=== PATIENT | female | born 1940 | race Caucasian/White ===

== ENCOUNTER 2017-08-18 18:10 | Emergency (ER) | payer MEDICARE, MEDICAID ==
[~2017-08-18] VITALS: Ht 170.2 cm; Wt 79.4 kg
--- NOTE | 2017-08-18 18:19 | NUR ---
PT BIB FAMILY TO ER BED 12. PT IS C/O HEADACHE AND HYPERTENSION W/ A B/P OF 240/119. PT WAS GIVEN HCTZ AND B/P UPON ARRIVAL IS 171/103. DENIES FEVER. HEADACHE BEEN BOTHERING HER X 2 DAY. GOWNED AND PLACED ON MONITOR. FAMILY AT BEDSIDE AWAITING MD SWEENEY.
--- NOTE | 2017-08-18 18:49 | NUR ---
PT'S FAMILY IS REFUSING CHEST XRAY.
--- NOTE | 2017-08-18 18:55 | NUR ---
IV LINE STARTED BLOOD DRAWN AND SENT TO LAB.
[2017-08-18] MEDS ORDERED: ENALAPRILAT INJ (1.25 MG/ML) 1.25 MG/ML VIAL IV PRN (19:00)
[2017-08-18] MEDS ORDERED: ENALAPRILAT DIHYD. (2.5MG/ML) 1.25 MG/ML VIAL IV ONE (19:01)
[2017-08-18 19:03] LABS: BASOPHILS # (AUTO) 0.2 /CMM (0.0-0.2); BASOPHILS % (AUTO) 2.8 % (0.0-2.0); EOSINOPHILS # (AUTO) 0.2 /CMM (0.0-0.7); EOSINOPHILS % (AUTO) 3.5 % (0.0-6.0); HEMATOCRIT 38 % (33-45); LYMPHOCYTES # (AUTO) 1.3 /CMM (0.8-4.8); LYMPHOCYTES % (AUTO) 18.9 % (20.0-44.0); MEAN CORPUSCULAR HEMOGLOBIN 32 PG (26.0-33.0); MEAN CORPUSCULAR HGB CONC 34 g/dl (31.0-36.0); MEAN CORPUSCULAR VOLUME 94 fL (82-100); MONOCYTES # (AUTO) 0.8 /CMM (0.1-1.30); MONOCYTES % (AUTO) 11.5 % (2.0-12.0); NEUTROPHILS # (AUTO) 4.6 /CMM (1.8-8.9); NEUTROPHILS % (AUTO) 63.3 % (43.0-81.0); PLATELET COUNT (AUTO) 192 /CMM (150-450); WHITE BLOOD COUNT (AUTO) 7.1 K/uL (4.3-11.0)
[2017-08-18 19:19] LABS: CALCIUM, SERUM 8.6 mg/dL (8.5-10.1); CARBON DIOXIDE 25 mmol/L (21-32); CHLORIDE 100 mmol/L (98-107); GLUCOSE 102 mg/dL (74-106); POTASSIUM 4.3 mmol/L (3.5-5.1); SODIUM SERUM 132 mmol/L (136-145); UREA NITROGEN, BLOOD 21 mg/dL (7-18)
[2017-08-18 19:24] LABS: ALANINE AMINOTRANSFERASE 15 U/L (12-78); ALBUMIN 3.2 g/dL (3.4-5.0); ALKALINE PHOSPHATASE 96 U/L (46-116); ASPARTATE AMINOTRANSFERASE 21 U/L (15-37); BILIRUBIN,DIRECT 0.2 mg/dL (0.0-0.2); BILIRUBIN,TOTAL 0.6 mg/dL (0.2-1.0); TOTAL PROTEIN, SERUM 6.9 g/dL (6.4-8.2)
[2017-08-18 19:27] LABS: TROPONIN I < 0.017 ng/mL (0.00-0.056)
--- NOTE | 2017-08-18 20:07 | NUR ---
Patient discharged to home in stable condition. Written and verbal after care instructions given. Patient verbalizes understanding of instruction.IV removed. Catheter intact and site benign. Pressure and 4x4 applied to site. No bleeding noted.
[2017-08-18 20:16] VITALS: BP 137/74
== END 2017-08-18 20:17 | disposition home or self-care (01) ==
LOC: ER 18:11
DX: I10 Essential (primary) hypertension (principal); J45.909 Unspecified asthma, uncomplicated; Z88.1 Allergy status to other antibiotic agents
CPT/HCPCS: 36415; 80048; 80076; 84484; 85025; 85730; 93005; 96374; 99285; A4606; J3490; Z7610

== ENCOUNTER 2017-09-29 23:24 | Emergency (ER) | payer MEDICARE, MEDICAID | END 2017-09-30 | disposition left against medical advice (07) | LOC: ER 23:25 | DX: Z53.21 Procedure and treatment not carried out due to patient leaving prior to being seen by health care provider (principal) ==

== ENCOUNTER 2018-11-05 08:06 | Emergency (ER) | payer MEDICARE, MEDICAID ==
[~2018-11-05] VITALS: Ht 170.2 cm; Wt 77.1 kg
--- NOTE | 2018-11-05 08:28 | NUR ---
BIB DAUGHTER FOR HI BP 210's & FAST HR. DENIES CP, SOB, DIZZINESS, MAHER, N/V, NUMBNESS @ THIS TIME. TO ER BED 1, HOOKED TO MONITOR, CHANGED TO GOWN, PROVIDED W WARM BLANKET, AWAITING MD SWEENEY.
--- NOTE | 2018-11-05 08:30 | NUR ---
DR ORDOÑEZ AT BEDSIDE
[2018-11-05 08:43] LABS: BASOPHILS # (AUTO) 0.1 /CMM (0.0-0.2); BASOPHILS % (AUTO) 1.6 % (0.0-2.0); EOSINOPHILS % (AUTO) 2.3 % (0.0-6.0); HEMATOCRIT 43 % (33-45); HEMOGLOBIN 14.1 g/dL (11.5-14.8); LYMPHOCYTES % (AUTO) 50.2 % (20.0-44.0); MEAN CORPUSCULAR HGB CONC 33 g/dl (31.0-36.0); MEAN CORPUSCULAR VOLUME 92 fL (82-100); MONOCYTES # (AUTO) 0.6 /CMM (0.1-1.30); MONOCYTES % (AUTO) 14.4 % (2.0-12.0); NEUTROPHILS # (AUTO) 1.2 /CMM (1.8-8.9); NEUTROPHILS % (AUTO) 31.5 % (43.0-81.0); PLATELET COUNT (AUTO) 183 /CMM (150-450); RED BLOOD CELL COUNT(AUTO) 4.66 MIL/uL (4.0-5.2)
[2018-11-05 08:46] LABS: CALCIUM, SERUM 8.5 mg/dL (8.5-10.1); CARBON DIOXIDE 24 mmol/L (21-32); CHLORIDE 101 mmol/L (98-107); CREATININE 0.6 mg/dL (0.6-1.3); GLUCOSE 98 mg/dL (74-106); SODIUM SERUM 135 mmol/L (136-145); UREA NITROGEN, BLOOD 10 mg/dL (7-18)
[2018-11-05 08:51] LABS: ALANINE AMINOTRANSFERASE 23 U/L (12-78); ALBUMIN 3.5 g/dL (3.4-5.0); ALKALINE PHOSPHATASE 152 U/L (46-116); ASPARTATE AMINOTRANSFERASE 34 U/L (15-37); BILIRUBIN,DIRECT 0.1 mg/dL (0.0-0.2); BILIRUBIN,TOTAL 0.8 mg/dL (0.2-1.0); TOTAL PROTEIN, SERUM 7.2 g/dL (6.4-8.2)
--- NOTE | 2018-11-05 10:20 | NUR ---
IV removed. Catheter intact and site benign. Pressure and 4x4 applied to site. No bleeding noted. Patient discharged to home in stable condition. Written and verbal after care instructions given. Patient verbalizes understanding of instruction.
[2018-11-05 11:30] VITALS: BP 152/68
== END 2018-11-05 10:30 | disposition home or self-care (01) ==
LOC: ER 08:12
DX: I10 Essential (primary) hypertension (principal); F41.9 Anxiety disorder, unspecified; J45.909 Unspecified asthma, uncomplicated; Z88.1 Allergy status to other antibiotic agents
CPT/HCPCS: 36415; 80048-TC; 80076-TC; 84484-TC; 85025-TC

== ENCOUNTER 2018-12-20 13:33 | Emergency (ER) | payer MEDICARE, MEDICAID ==
[~2018-12-20] VITALS: Ht 170.2 cm; Wt 76.2 kg
--- NOTE | 2018-12-20 13:52 | NUR ---
GENERALIZED BODY RASH NOTED YESTERDAY, ITCHY. APPEARS ACROSS ABDOMEN, GROIN AREA, AND BICEPS. RASH ON BICEPS APPEAR SLIGHTLY RAISED. PT USED ANT-ITCH CREAM YESTERDAY AND THE ITCHING IS LESS TODAY. DENIES PAIN. PER DAUGHTER, PT STARTED TAKING SEROQUEL 2 WEEKS AGO. DENIES OTHER RECENT CHANGES TO LIFESTYLE/MEDICATIONS. PT IS KOSOVAN-SPEAKING, AOX4, AMB, VSS, RR EVEN AND UNLABORED ON RA. MADE COMFORTABLE AND READY FOR EVAL.
--- NOTE | 2018-12-20 14:20 | NUR ---
DR BRASWELL AT BEDSIDE FOR EVAL.
[2018-12-20] MEDS ORDERED: diphenhydrAMINE HCL ELIX 25 MG/10 ML UDC PO ONE (14:30)
[2018-12-20] MEDS ORDERED: predniSONE 20 MG TABLET PO ONE (14:30)
[2018-12-20] MEDS ORDERED: IV NS 0.9% 500 ML BAG IV ONE (14:30)
[2018-12-20] MEDS ORDERED: predniSONE 20 MG TABLET ONE (14:32)
[2018-12-20] MEDS ORDERED: diphenhydrAMINE HCL 25 MG CAPSULE ONE (14:32)
--- NOTE | 2018-12-20 14:45 | NUR ---
URINE AND BLOOD TAKEN TO STAT LAB
[2018-12-20 14:52] LABS: BASOPHILS % (AUTO) 0.4 % (0.0-2.0); EOSINOPHILS % (AUTO) 0.7 % (0.0-6.0); HEMATOCRIT 37 % (33-45); HEMOGLOBIN 12.2 g/dL (11.5-14.8); LYMPHOCYTES # (AUTO) 1.5 /CMM (0.8-4.8); LYMPHOCYTES % (AUTO) 33.2 % (20.0-44.0); MEAN CORPUSCULAR HGB CONC 33 g/dl (31.0-36.0); MEAN CORPUSCULAR VOLUME 90 fL (82-100); MONOCYTES # (AUTO) 0.5 /CMM (0.1-1.30); MONOCYTES % (AUTO) 9.8 % (2.0-12.0); NEUTROPHILS # (AUTO) 2.6 /CMM (1.8-8.9); NEUTROPHILS % (AUTO) 55.9 % (43.0-81.0); PLATELET COUNT (AUTO) 149 /CMM (150-450); RED BLOOD CELL COUNT(AUTO) 4.13 MIL/uL (4.0-5.2); WHITE BLOOD COUNT (AUTO) 4.6 K/uL (4.3-11.0)
[2018-12-20 14:53] LABS: BILIRUBIN,URINE Negative (NEGATIVE); BLOOD, URINE Negative Ery/uL (NEGATIVE); COLOR,URINE Yellow (YELLOW); KETONES,URINE Negative (NEGATIVE); LEUKOCYTE ESTERASE ,URINE Small (NEGATIVE); NITRITE, URINE Negative (NEGATIVE); PROTEIN,URINE Negative (NEGATIVE); UGLUCOSE Negative (NEGATIVE); UROBILINOGEN,URINE 0.2 EU/dL (0.2)
[2018-12-20 14:57] LABS: APPEARANCE,URINE HAZY (CLEAR)
[2018-12-20 14:58] LABS: BACTERIA,URINE Few /HPF (None Seen); RBC,URINE 0-2 /HPF (0-2); SQUAMOUS EPITHELIAL CELL,UR Few /HPF (None Seen)
[2018-12-20 14:59] LABS: CALCIUM, SERUM 8.2 mg/dL (8.5-10.1); CARBON DIOXIDE 25 mmol/L (21-32); CHLORIDE 101 mmol/L (98-107); CREATININE 0.7 mg/dL (0.6-1.3); GLUCOSE 97 mg/dL (74-106); POTASSIUM 4.5 mmol/L (3.5-5.1); SODIUM SERUM 135 mmol/L (136-145); UREA NITROGEN, BLOOD 11 mg/dL (7-18)
[2018-12-20 15:04] LABS: ALANINE AMINOTRANSFERASE 17 U/L (12-78); ALBUMIN 3.2 g/dL (3.4-5.0); ALKALINE PHOSPHATASE 110 U/L (46-116); ASPARTATE AMINOTRANSFERASE 24 U/L (15-37); BILIRUBIN,DIRECT 0.1 mg/dL (0.0-0.2); BILIRUBIN,TOTAL 0.7 mg/dL (0.2-1.0); LIPASE 198 U/L (73-393); TOTAL PROTEIN, SERUM 6.2 g/dL (6.4-8.2)
--- NOTE | 2018-12-20 15:30 | NUR ---
Patient discharged to home in stable condition. Written and verbal after care instructions given. Patient verbalizes understanding of instruction.
--- NOTE | 2018-12-20 15:31 | NUR ---
IV removed. Catheter intact and site benign. Pressure and 4x4 applied to site. No bleeding noted.
[2018-12-20 15:48] VITALS: BP 100/55
== END 2018-12-20 15:30 | disposition home or self-care (01) ==
LOC: ER 13:35
DX: L50.9 Urticaria, unspecified (principal); T43.595A Adverse effect of other antipsychotics and neuroleptics, initial encounter; N39.0 Urinary tract infection, site not specified; I10 Essential (primary) hypertension; J45.909 Unspecified asthma, uncomplicated; Z88.1 Allergy status to other antibiotic agents; Y92.89 Other specified places as the place of occurrence of the external cause
CPT/HCPCS: 36415; 80048; 80076; 81001; 83690; 85025; 87086; 99283; J7040; J7512; Q0163; 81000-TC; J7030

== ENCOUNTER 2021-08-08 08:24 | Emergency (ER) | payer MEDICARE, MEDICAID ==
[~2021-08-08] VITALS: Ht 162.6 cm; Wt 65.3 kg
--- NOTE | 2021-08-08 08:50 | NUR ---
DR ROBERTS AT BEDSIDE FOR EVAL.
[2021-08-08] MEDS ORDERED: IV NS 0.9% 500 ML BAG IV ONE (09:00)
--- NOTE | 2021-08-08 09:06 | NUR ---
IV LINE STARTED BLOOD DRAWN AND SENT TO LAB.
--- NOTE | 2021-08-08 09:07 | NUR ---
RADIOLOGY AT BEDSIDE FOR CHEST XRAY.
[2021-08-08] MEDS ORDERED: LOSA25TA27 PO (09:08)
[2021-08-08] MEDS ORDERED: ESCI10TA PO (09:08)
[2021-08-08] MEDS ORDERED: CARB1TAB21 PO (09:08)
[2021-08-08] MEDS ORDERED: HYDR-4077 PO (09:08)
[2021-08-08] MEDS ORDERED: PROP10TA68 PO (09:08)
[2021-08-08] MEDS ORDERED: MYRBETRIQ PO (09:08)
[2021-08-08] MEDS ORDERED: LORA-258 PO (09:08)
[2021-08-08] MEDS ORDERED: LOSA50TA39 PO (09:08)
[2021-08-08] MEDS ORDERED: MEMA10TA56 PO (09:08)
[2021-08-08] MEDS ORDERED: ASPI-1420 PO (09:08)
[2021-08-08] MEDS ORDERED: PRAV20TA4 PO (09:08)
[2021-08-08] MEDS ORDERED: FOLI0.4T6 PO (09:08)
[2021-08-08] MEDS ORDERED: DONE10TA44 PO (09:08)
[2021-08-08] MEDS ORDERED: BENZ0.5T43 PO (09:08)
[2021-08-08] MEDS ORDERED: FLUT16SP16 BNOSTRILS (09:09)
[2021-08-08] MEDS ORDERED: ALBU18HF2 IH (09:09)
[2021-08-08 09:30] LABS: BASOPHILS % (AUTO) 0.3 % (0.0-2.0); EOSINOPHILS % (AUTO) 0.2 % (0.0-6.0); HEMATOCRIT 45 % (33-45); HEMOGLOBIN 14.9 g/dL (11.5-14.8); LYMPHOCYTES # (AUTO) 1.9 K/uL (0.8-4.8); LYMPHOCYTES % (AUTO) 39.5 % (20.0-44.0); MEAN CORPUSCULAR HGB CONC 33 g/dl (31.0-36.0); MEAN CORPUSCULAR VOLUME 93 fL (82-100); MONOCYTES # (AUTO) 0.9 K/uL (0.1-1.30); MONOCYTES % (AUTO) 17.9 % (2.0-12.0); NEUTROPHILS % (AUTO) 42.1 % (43.0-81.0); PLATELET COUNT (AUTO) 110 K/uL (150-450); RED BLOOD CELL COUNT(AUTO) 4.84 MIL/uL (4.0-5.2); WHITE BLOOD COUNT (AUTO) 4.9 K/uL (4.3-11.0)
[2021-08-08 10:05] LABS: ALANINE AMINOTRANSFERASE 39 U/L (12-78); ALBUMIN 3.4 g/dL (3.4-5.0); ALKALINE PHOSPHATASE 133 U/L (46-116); ASPARTATE AMINOTRANSFERASE 52 U/L (15-37); BILIRUBIN,DIRECT 0.2 mg/dL (0.0-0.2); CARBON DIOXIDE 28 mmol/L (21-32); CHLORIDE 95 mmol/L (98-107); CREATININE 0.7 mg/dL (0.6-1.3); GLUCOSE 109 mg/dL (74-106); POTASSIUM 3.9 mmol/L (3.5-5.1); SODIUM SERUM 132 mmol/L (136-145); TOTAL PROTEIN, SERUM 7.8 g/dL (6.4-8.2); UREA NITROGEN, BLOOD 9 mg/dL (7-18)
--- NOTE | 2021-08-08 10:22 | NUR ---
FAMILY LEFT CONTACT # [phone]
[2021-08-08 11:25] LABS: BILIRUBIN,URINE NEGATIVE (NEGATIVE); COLOR,URINE YELLOW (YELLOW); LEUKOCYTE ESTERASE ,URINE NEGATIVE (NEGATIVE); NITRITE, URINE NEGATIVE (NEGATIVE); PROTEIN,URINE NEGATIVE (NEGATIVE); UGLUCOSE NEGATIVE (NEGATIVE); UROBILINOGEN,URINE 0.2 EU/dL (0.2)
[2021-08-08] MEDS ORDERED: hydrALAZINE HCL IV 20 MG VIAL IV ONE (12:00)
[2021-08-08] MEDS ORDERED: hydrALAZINE HCL IV 20 MG VIAL ONE (12:13)
--- NOTE | 2021-08-08 12:59 | NUR ---
Patient discharged to home in stable condition. Written and verbal after care instructions given. Patient verbalizes understanding of instruction.Patient discharged to home in stable condition. Written and verbal after care instructions given. Patient verbalizes understanding of instruction.
[2021-08-08 13:04] VITALS: BP 134/68
[2021-08-08 15:11] LABS: BACTERIA,URINE None seen /HPF (None Seen); RBC,URINE 0-2 /HPF (0-2); SQUAMOUS EPITHELIAL CELL,UR None Seen /HPF (None Seen); WBC,URINE 0-2 /HPF (0-3)
[2021-08-08 15:38] LABS: BAND % (MANUAL) 2 % (0.0-5.0); LYMPHOCYTES % (MANUAL) 26 % (16-48); METAMYELOCYTES % 6 % (0-0); MONOCYTES % (MANUAL) 16 % (0-11.0); MYELOCYTES % 3 % (0-0); NEUTROPHILS % (MANUAL) 43 (42-76)
[2021-08-08 15:39] LABS: REACTIVE LYMPHOCYTES 4 % (0-0)
== END 2021-08-08 13:04 | disposition home or self-care (01) ==
LOC: ER 08:27
DX: R53.1 Weakness (principal); R55 Syncope and collapse; I10 Essential (primary) hypertension; J45.909 Unspecified asthma, uncomplicated; Z88.1 Allergy status to other antibiotic agents; Z88.8 Allergy status to other drugs, medicaments and biological substances; Z79.899 Other long term (current) drug therapy; Z79.82 Long term (current) use of aspirin; W18.39XA Other fall on same level, initial encounter; Y93.89 Activity, other specified; Y92.098 Other place in other non-institutional residence as the place of occurrence of the external cause; Y99.8 Other external cause status
CPT/HCPCS: 36415; 70450; 71045; 80048; 80076; 81001; 82550; 82553; 83880; 84484; 85007; 85025; 87086; 93005; 96374; 99285; J0360; J7040 ×2

== ENCOUNTER 2022-04-01 14:14 | Emergency (ER) | payer MEDICARE, OTHER ==
[~2022-04-01] VITALS: Ht 175.3 cm; Wt 70.3 kg
[~2022-04-01 14:14] MED LIST: ALBU18HF2 IH; ASPI-1420 PO; BENZ0.5T43 PO; CARB1TAB21 PO; DONE10TA44 PO; ESCI10TA PO; FLUT16SP16 BNOSTRILS; FOLI0.4T6 PO; HYDR-4077 PO; LORA-258 PO; LOSA25TA27 PO; LOSA50TA39 PO; MEMA10TA56 PO; MYRBETRIQ PO; PRAV20TA4 PO; PROP10TA68 PO
[2022-04-01 14:31] VITALS: BP 158/77
[2022-04-01] MEDS ORDERED: HYDROCODONE BIT/HOMATROPINE 5 ML UDC ONE (15:29)
[2022-04-01] MEDS ORDERED: HYDROCODONE BIT/HOMATROPINE 5 ML UDC PO ONE (15:30)
[2022-04-01] MEDS ORDERED: HYDR473S4 PO (16:16)
== END 2022-04-01 16:26 | disposition home or self-care (01) ==
LOC: ER 14:18
DX: J20.9 Acute bronchitis, unspecified (principal); Z20.822 Contact with and (suspected) exposure to COVID-19; R91.8 Other nonspecific abnormal finding of lung field; J45.909 Unspecified asthma, uncomplicated; I10 Essential (primary) hypertension; Z88.1 Allergy status to other antibiotic agents; Z79.899 Other long term (current) drug therapy
CPT/HCPCS: 71045-TC; C9803

== ENCOUNTER 2022-11-13 15:37 | Inpatient (IN) | payer MEDICARE, OTHER ==
[~2022-11-13] VITALS: Ht 170.2 cm; Wt 74.4 kg
[~2022-11-13 15:37] MED LIST changes: +FLUT16SP16; -FLUT16SP16 BNOSTRILS; +HYDR473S4 PO
[2022-11-13] MEDS ORDERED: ACETAMINOPHEN 650 MG/SUPP.RECT RC ONE ×2 (16:00)
[2022-11-13] MEDS ORDERED: IV NS 0.9% 1,000 ML BAG IV ONE (16:00)
[2022-11-13 16:08] LABS: BASOPHILS % (AUTO) 0.5 % (0.0-2.0); EOSINOPHILS % (AUTO) 0.4 % (0.0-6.0); HEMATOCRIT 42 % (33-45); HEMOGLOBIN 14.3 g/dL (11.5-14.8); LYMPHOCYTES # (AUTO) 1.2 K/uL (0.8-4.8); LYMPHOCYTES % (AUTO) 15.7 % (20.0-44.0); MEAN CORPUSCULAR HGB CONC 34 g/dl (31.0-36.0); MEAN CORPUSCULAR VOLUME 95 fL (82-100); MONOCYTES # (AUTO) 0.9 K/uL (0.1-1.30); MONOCYTES % (AUTO) 12.4 % (2.0-12.0); NEUTROPHILS # (AUTO) 5.4 K/uL (1.8-8.9); PLATELET COUNT (AUTO) 177 K/uL (150-450); RED BLOOD CELL COUNT(AUTO) 4.48 MIL/uL (4.0-5.2); WHITE BLOOD COUNT (AUTO) 7.6 K/uL (4.3-11.0)
[2022-11-13 16:33] LABS: CALCIUM, SERUM 9.1 mg/dL (8.5-10.1); CARBON DIOXIDE 23 mmol/L (21-32); CHLORIDE 96 mmol/L (98-107); CREATININE 0.5 mg/dL (0.6-1.3); GLUCOSE 112 mg/dL (74-106); POTASSIUM 4.4 mmol/L (3.5-5.1); SERUM AMMONIA 22 umol/L (11-32); SODIUM SERUM 130 mmol/L (136-145); UREA NITROGEN, BLOOD 13 mg/dL (7-18)
[2022-11-13 16:40] LABS: ALANINE AMINOTRANSFERASE 26 U/L (12-78); ALBUMIN 3.5 g/dL (3.4-5.0); ALKALINE PHOSPHATASE 147 U/L (46-116); ASPARTATE AMINOTRANSFERASE 38 U/L (15-37); BILIRUBIN,DIRECT 0.1 mg/dL (0.0-0.2); BILIRUBIN,TOTAL 1.1 mg/dL (0.2-1.0); TOTAL PROTEIN, SERUM 7.8 g/dL (6.4-8.2)
[2022-11-13 16:43] LABS: ALCOHOL, BLOOD < 3 mg/dL (0-0)
--- NOTE | 2022-11-13 16:44 | NUR ---
PT IN BED 5. PT A/O X1 SLOVENIAN SPEAKING, BREATHING IS EVEN AND UNLABORED LUNG SOUNDS ARE CLEAR BILATERALLY ON ROOM AIR, DAUGHTER IS AT BEDSIDE. C/O: POTENTAL FOR SEPSIS ON ARRIVAL PT HAD A FEVER PT GIVEN TYLENOL RECTALLY, HX OF UTI IN PAST WEEK JUST FINISHED ABX THERAPY URINE STILL POSTIVE FOR BACTERIA. HYPERTENSIVE WHEN ATTCHED TO BEDISDE MONITOR. O2 AND HR WNL. DIAS CATHETER STARTED DRAINING YELLOW URINE. URINE COLLECTED AND SENT TO LAB. PT IN SEMI FOWLERS, SIDE RAILS ARE UP BED LOCKED IN LOWEST POSTION.
--- NOTE | 2022-11-13 16:52 | NUR ---
20G RFA BLOOD AND CULTURES DRAWN AND SENT TO LAB
--- NOTE | 2022-11-13 16:53 | NUR ---
BG 108
--- NOTE | 2022-11-13 16:54 | NUR ---
URINE COLLECTED AND SET TO LAB.
--- NOTE | 2022-11-13 16:54 | NUR ---
DIAS CATHETER INSERTED 16F DRAINING YELLOW URINE
[2022-11-13 17:00] LABS: BILIRUBIN,URINE NEGATIVE (NEGATIVE); COLOR,URINE YELLOW (YELLOW); LEUKOCYTE ESTERASE ,URINE TRACE (NEGATIVE); NITRITE, URINE NEGATIVE (NEGATIVE); PROTEIN,URINE 1+ mg/dl (NEGATIVE); UGLUCOSE NEGATIVE (NEGATIVE); UROBILINOGEN,URINE 0.2 EU/dL (0.2)
[2022-11-13] MEDS ORDERED: TRIA0.2585 PO (17:05)
[2022-11-13] MEDS ORDERED: DOCU100C58 PO (17:05)
[2022-11-13] MEDS ORDERED: ESOM40CA52 PO (17:05)
[2022-11-13] MEDS ORDERED: CLOT15CR27 TD (17:05)
[2022-11-13] MEDS ORDERED: DONE23TA3 PO (17:05)
[2022-11-13] MEDS ORDERED: MELO-107 PO (17:05)
[2022-11-13] MEDS ORDERED: OLOP5DRO15 EACHEYE (17:05)
[2022-11-13] MEDS ORDERED: METH2.5T14 MT (17:05)
[2022-11-13] MEDS ORDERED: AMLO-212 PO (17:05)
[2022-11-13] MEDS ORDERED: LORA-953 PO (17:05)
[2022-11-13] MEDS ORDERED: ATEN25TA PO (17:05)
[2022-11-13] MEDS ORDERED: CARB1TAB31 PO (17:05)
[2022-11-13] MEDS ORDERED: DICL1PAT7 TD (17:05)
[2022-11-13] MEDS ORDERED: AZEL137S7 (17:05)
[2022-11-13 17:22] LABS: THYROID STIMULATING HORMONE 1.051 uIU/mL (0.358-3.74)
[2022-11-13] MEDS ORDERED: CEFTRIAXONE 1GM BAG (ER ONLY) 50 ML IV ONE (17:45)
[2022-11-13 17:50] LABS: BACTERIA,URINE 3+ /HPF (None Seen); RBC,URINE 0-2 /HPF (0-2); SQUAMOUS EPITHELIAL CELL,UR None Seen /HPF (None Seen)
[2022-11-13 17:51] LABS: MUCUS,URINE Moderate /LPF (None Seen)
[2022-11-13] MEDS ORDERED: CEFTRIAXONE 1GM BAG (ER ONLY) 1 GM/50 ML PIGGYBACK IV ONE (18:00)
--- NOTE | 2022-11-13 18:04 | NUR ---
[facility] CALLED, STUDENT SERVICES ADVISOR PAGED.
--- NOTE | 2022-11-13 19:11 | NUR ---
[facility] CALLED, COLLEGE AND CAREER COUNSELOR PAGED.
--- NOTE | 2022-11-13 20:26 | NUR ---
REPORT GIVEN TO [facility] FOR INPATIENT SERVICES.
[2022-11-13 20:45] VITALS: BP 127/59
--- NOTE | 2022-11-13 21:00 | NUR ---
pt transported with emt rn and daughter as freelance interpreter/translator at bedside. pt was stable throught acls transport. inpateient nurse at bedside to receive patient.
[2022-11-13] MEDS ORDERED: MAGNESIUM HYDROXIDE 30 ML UDC PO PRN (21:30)
[2022-11-13] MEDS ORDERED: ONDANSETRON HCL/PF 4 MG/2 ML VIAL IVP PRN (21:30)
[2022-11-13] MEDS ORDERED: Z GUARD REMEDY 4 OZ OINT TP PRN (21:30)
[2022-11-13] MEDS: ENOXAPARIN SODIUM 40 MG/0.4 ML DISP.SYRIN SQ SCH (21:49)
[2022-11-13] MEDS: IV NS 0.9% 1,000 ML IV PRN (21:59)
[2022-11-13] MEDS ORDERED: LORATADINE 10 MG TABLET PO PRN (23:30)
[2022-11-13] MEDS ORDERED: DOCUSATE SODIUM 100 MG CAPSULE PO PRN (23:30)
[2022-11-13] MEDS ORDERED: LORAZEPAM 0.5 MG TABLET PO PRN (23:30)
--- NOTE | 2022-11-13 23:50 | NUR ---
ADMISSION NOTE PATIENT BROUGHT UP AT AROUND 2044, ACCOMPANIED BY 1 ER PERSONNEL AND ONE OF HER DAUGHTER VIA GURNEY. PATIENT IS A/OX1 PER DAUGHTER AND NEEDS FREQUENT RE-ORIENTATION. NO S/S OF APPARENT DISTRESS ON ROOM AIR. DENIES ANY PAIN. PATIENT HAS DIAS PRESENT UPON ADMISSION DRAINING CLEAR, YELLOW URINE VIA GRAVITY. HAS 2 IV ACCESS ONE ON THE R.FA#18G AND LEFT WRIST #20G BOTH INTACT AND PATENT. NEW ID BAND ON PATIENT. BELONGINGS CHECKED AND SIGNED BY DAUGHTER AT BED SIDE. PER DAUGHTER MOM WOULD LIKE TO BE FULL CODE. AND IS UP-TO-DATE WITH ALL HER IMMUNIZATIONS INCLUDING COVID. DENIES SMOKING NOR ALCOHOL DRINKING. PATIENT ORIENTED IN THE UNIT AND THE USE OF CALL LIGHT. SAFETY IN PLACE. DAUGHTER CITLALI ASKED TO STAY OVER NIGHT FOR TONIGHT TO ENSURE HER MOM'S SAFETY. CHARGE NURSE ZION AGREEABLE. ALL NEEDS ATTENDED FOR NOW. WILL CONTINUE WITH PLAN OF CARE FOR PATIENT AND FOLLOW THROUGH DOCTOR'S ORDERS.
[2022-11-13] MEDS: AMLODIPINE BESYLATE 5 MG TABLET PO SCH (23:59)
[2022-11-14] MEDS: ACETAMINOPHEN 325 MG TABLET PO PRN ×2 (05:31→19:15)
--- NOTE | 2022-11-14 05:53 | NUR ---
noc rn note Temperature 101.8, given Tylenol 650mg as ordered PRN. Daughter present at bed side said mom would refused ice packs. patient education done about cooling measures, daughter acknowledged. will re-assess.
[2022-11-14 05:54] LABS: BASOPHILS % (AUTO) 0.2 % (0.0-2.0); EOSINOPHILS % (AUTO) 0.3 % (0.0-6.0); HEMATOCRIT 36 % (33-45); HEMOGLOBIN 12.3 g/dL (11.5-14.8); LYMPHOCYTES # (AUTO) 1.2 K/uL (0.8-4.8); LYMPHOCYTES % (AUTO) 14.4 % (20.0-44.0); MEAN CORPUSCULAR HGB CONC 34 g/dl (31.0-36.0); MEAN CORPUSCULAR VOLUME 95 fL (82-100); MONOCYTES # (AUTO) 1.2 K/uL (0.1-1.30); MONOCYTES % (AUTO) 13.8 % (2.0-12.0); NEUTROPHILS % (AUTO) 71.3 % (43.0-81.0); PLATELET COUNT (AUTO) 134 K/uL (150-450); RED BLOOD CELL COUNT(AUTO) 3.82 MIL/uL (4.0-5.2); WHITE BLOOD COUNT (AUTO) 8.4 K/uL (4.3-11.0)
[2022-11-14 06:13] LABS: CALCIUM, SERUM 8.4 mg/dL (8.5-10.1); CARBON DIOXIDE 22 mmol/L (21-32); CHLORIDE 100 mmol/L (98-107); CREATININE 0.6 mg/dL (0.6-1.3); GLUCOSE 117 mg/dL (74-106); MAGNESIUM 1.8 mg/dL (1.8-2.4); PHOSPHORUS 3.2 mg/dL (2.5-4.9); POTASSIUM 3.8 mmol/L (3.5-5.1); SODIUM SERUM 132 mmol/L (136-145); UREA NITROGEN, BLOOD 19 mg/dL (7-18)
[2022-11-14 06:26] LABS: THYROID STIMULATING HORMONE 0.826 uIU/mL (0.358-3.74)
--- NOTE | 2022-11-14 06:39 | NUR ---
noc rn note- re-assessment Temp 98.3 after tylenol.
--- NOTE | 2022-11-14 07:25 | NUR ---
noc rn closing note Patient in bed with eyes closed, easy to arouse. no s/s of apparent distress on room air. denies pain. IV NS running @75mls/hr. all needs attended. scheduled medications administered. Del Angel draining clear, yellow urine with 850mls of output. call light within reach. endorsed to austin Irene for continuity of patient care.
--- NOTE | 2022-11-14 07:30 | NUR ---
RN OPENING NOTE PATIENT AWAKE IN BED, RESTING, A/O X 1, DAUGHTER AT BEDSIDE. NO S/S OF PAIN NOTED AT THIS TIME. ON ROOM AIR, BREATHING EVEN AND UNLABORED, NO DISTRESS OR SHORTNESS OF BREATH NOTED. PATIENT IS COMPLIANT WITH MEDICATIONS. IV ACCESS, L WRIST #20G INTACT, PATENT AND FLUSHING WELL. FALL AND SAFETY MEASURES IN PLACE BED ALARM ON, BED IN LOW AND LOCK POSITION, CALL LIGHT AND TABLE WITHIN EASY REACH, SIDE RAILS UP X2. WILL CONTINUE TO MONITOR.
[2022-11-14 08:00] VITALS: BP 124/58
[2022-11-14] MEDS: PANTOPRAZOLE 40 MG TABLET.DR PO SCH (08:08)
[2022-11-14] MEDS: MEMANTINE HCL 5 MG TABLET PO SCH ×2 (08:31→16:30)
[2022-11-14] MEDS: CEFTRIAXONE 1 G in IV D5W 50 ML IV SCH (08:31)
[2022-11-14] MEDS: ASPIRIN EC 81 MG TABLET.DR PO SCH (08:32)
[2022-11-14] MEDS: CARBIDOPA/LEVODOPA 10/100 MG 1 UDTAB PO SCH ×5 (08:32→21:44)
[2022-11-14] MEDS: FOLIC ACID 1 MG TABLET PO SCH (08:32)
[2022-11-14] MEDS: ESCITALOPRAM OXALATE (10 MG) 10 MG TABLET PO SCH (08:33)
[2022-11-14] MEDS: ATENOLOL 25 MG TABLET PO SCH (08:33)
--- NOTE | 2022-11-14 08:34 | NUR ---
RN NOTE FAMILY (DAUGHTER AT BEDSIDE) REQUESTED NOT TO GIVE PATIENT HER MORNING ATENOLOL AT THE MOMENT, BP: 124/58 HR:55. WILL CONTINUE TO MONITOR.
[2022-11-14] MEDS: AZELASTINE NASAL SPRAY 30 ML BOTTLE NS SCH ×2 (09:48→16:29)
[2022-11-14] MEDS: OLOPATADINE HCL 0.1% OPHTH BOTTLE EACHEYE SCH ×2 (09:48→16:29)
[2022-11-14 13:13] VITALS: BP 146/70
[2022-11-14] MEDS: IV NS 0.9% 1,000 ML IV PRN (15:32)
[2022-11-14 16:00] VITALS: BP_SYST 152; BP_SYST 165; BP_DIAS 67; BP_DIAS 98
[2022-11-14 16:30] VITALS: BP 165/67
[2022-11-14 17:37] VITALS: BP 155/103
--- NOTE | 2022-11-14 18:41 | NUR ---
RN CLOSING NOTE PATIENT AWAKE IN BED, RESTING, A/O X 1, FAMILY AT BEDSIDE. NO S/S OF PAIN NOTED AT THIS TIME. ON ROOM AIR, BREATHING EVEN AND UNLABORED, NO DISTRESS OR SHORTNESS OF BREATH NOTED. PATIENT IS COMPLIANT WITH MEDICATIONS. SCHEDULED MEDICATIONS ADMINISTERED. PATIENT WAS TURNED AND REPOSITIONED PER PROTOCOL. IV ACCESS, L WRIST #20G INTACT, PATENT AND FLUSHING WELL, RUNNING NS @ 75ML/HR. FALL AND SAFETY MEASURES IN PLACE BED ALARM ON, BED IN LOW AND LOCK POSITION, CALL LIGHT AND TABLE WITHIN EASY REACH, SIDE RAILS UP X2. ALL NEEDS ATTENDED AND ANTICIPATED. WILL ENDORSE TO HEALTH AND SAFETY MANAGER NURSE. Addendum: 11/14/22 at 1846 by Maria Victoria Pereira RN PATIENT WITH DIAS CATHETER IN PLACED AND DRAINING WELL, OUTPUT 1100ML, YELLOW URINE.
--- NOTE | 2022-11-14 19:30 | NUR ---
MS ASGE INITIAL NOTES RECEIVED REPORT FROM AM NURSE AND SEEN PT IN BED AWAKE AND ALERT , DAUGHTER CONCERNED ABOUT THE BLOOD PRESSURES OF THE PATIENT EARLIER THAT IS 178/68 . AND HAVE TEMP 100.8 TYLENOL GIVEN BY AM NURSE . KIMBERLEE CEBALLOS RE-CHECKED THE VITAL SIGNS AND CAME OUT BP 162/62 , PULSE 75, RESP 20 ,TEMP 98.5 AND O2 SAT 95 % IN ROOM AIR. I TALKED TO THE DAUGHTER THAT I WILL CHECK ABOUT HER MEDS AND I WILL COME BACK .
[2022-11-14] MEDS: AMLODIPINE BESYLATE 5 MG TABLET PO SCH (19:55)
--- NOTE | 2022-11-14 19:55 | NUR ---
MS SAGE NOTES NORVASC 5MG PO GIVEN ORDERED , CHARGE NURSE AWARE. THEN I TOLD TO THE DAUGHTER THAT I WILL NOTIFY THE MD IF SHE NEEDS PRN MEDICATION FOR HER BLOOD PRESSURE. PT DAUGHTER SAID "THANK YOU ". NO SIGNS OF ANY DISCOMFORT OR ANY ACUTE DISTRESS NOTED. PT STILL HAVE IVF OF NS TA 75ML/HR INFUSING ON HER LEFT WRIST. WILL CONTINUE MONITORING. BED IN LOW AND LOCK IN POSITION WITH SIDE RAILS X2 UP . FAMILY STILL AT THE BEDSIDE.
[2022-11-14 20:00] VITALS: BP 162/62
[2022-11-14] MEDS: ENOXAPARIN SODIUM 40 MG/0.4 ML DISP.SYRIN SQ SCH (21:46)
--- NOTE | 2022-11-14 22:55 | NUR ---
MS SAGE NOTES DAUGHTER CAME BACK JUST TO ENCOURAGE PATIENT TO TAKE HER MEDICATION , WE TRIED EARLIER WITH THE HELPED OF HER NIECE BUT PATIENT STILL REFUSING. EDUCATE THE PATIENT ALSO WHAT THE PURPOSE OF IT. NOTIFY MD SPORTS INFORMATION DIRECTOR .
[2022-11-15] MEDS: IV NS 0.9% 1,000 ML IV PRN (06:11)
[2022-11-15 07:00] VITALS: BP 144/69
--- NOTE | 2022-11-15 07:00 | NUR ---
MS CAR ATTENDANT CLOSING NOTES PT RESTING AT THIS TIME NO SIGNS OF ANY DISCOMFORT OR ANY ACUTE DISTRESS NOTED. IVF STILL INFUSING . MORNING CARE DONE WITH THE HELPED OF TEST AND TURN UP TECHNICIAN. KEPT HER WARM AND COMFORTABLE AT ALL TIMES. NIECE STILL AT THE BEDSIDE FOR PT SAFETY. WILL ENDORSE TO AM NURSE FOR CONTINUITY OF CARE.
[2022-11-15 07:01] LABS: CARBON DIOXIDE 25 mmol/L (21-32); CHLORIDE 101 mmol/L (98-107); CREATININE 0.5 mg/dL (0.6-1.3); GLUCOSE 104 mg/dL (74-106); POTASSIUM 3.3 mmol/L (3.5-5.1); SODIUM SERUM 133 mmol/L (136-145); UREA NITROGEN, BLOOD 8 mg/dL (7-18)
--- NOTE | 2022-11-15 07:30 | NUR ---
RN OPENING NOTE PATIENT AWAKE IN BED, RESTING, A/O X 1-2, NIECE AT BEDSIDE. NO S/S OF PAIN NOTED AT THIS TIME. ON ROOM AIR, BREATHING EVEN AND UNLABORED, NO DISTRESS OR SHORTNESS OF BREATH NOTED. PATIENT IS COMPLIANT WITH MEDICATIONS. IV ACCESS, L WRIST #20G INTACT, PATENT AND FLUSHING WELL. FALL AND SAFETY MEASURES IN PLACE BED ALARM ON, BED IN LOW AND LOCK POSITION, CALL LIGHT AND TABLE WITHIN EASY REACH, SIDE RAILS UP X2. WILL CONTINUE TO MONITOR.
[2022-11-15] MEDS: CEFTRIAXONE 1 G in IV D5W 50 ML IV SCH (08:38)
[2022-11-15] MEDS: OLOPATADINE HCL 0.1% OPHTH BOTTLE EACHEYE SCH ×2 (08:38→16:26)
[2022-11-15] MEDS: AZELASTINE NASAL SPRAY 30 ML BOTTLE NS SCH ×2 (08:38→16:27)
[2022-11-15] MEDS: ASPIRIN EC 81 MG TABLET.DR PO SCH (08:39)
[2022-11-15] MEDS: DONEPEZIL 5 MG TABLET PO SCH (08:39)
[2022-11-15] MEDS: ATENOLOL 25 MG TABLET PO SCH (08:39)
[2022-11-15] MEDS: MEMANTINE HCL 5 MG TABLET PO SCH ×2 (08:40→16:27)
[2022-11-15] MEDS: ESCITALOPRAM OXALATE (10 MG) 10 MG TABLET PO SCH (08:40)
[2022-11-15] MEDS: CARBIDOPA/LEVODOPA 10/100 MG 1 UDTAB PO SCH ×4 (08:40→20:19)
[2022-11-15] MEDS: FOLIC ACID 1 MG TABLET PO SCH (08:40)
[2022-11-15] MEDS: PANTOPRAZOLE 40 MG TABLET.DR PO SCH (08:41)
[2022-11-15] MEDS ORDERED: POTASSIUM CHLORIDE 20 MEQ POWDER PACKET PO ONE (09:00)
[2022-11-15] MEDS ORDERED: hydrALAZINE HCL IV 20 MG VIAL IV PRN (11:00)
--- NOTE | 2022-11-15 11:05 | NUR ---
RN NOTE WHILE ON THE UNIT DOCTOR JESS MCMULLEN ORDER HYDRALAZINE 10MG IV Q8HR PRN FOR SBP >160, ORDER NOTED AND CARRIED.
--- NOTE | 2022-11-15 11:10 | NUR ---
RN NOTE PER DOCTOR JESS MCMULLEN, IF PATIENT IS EATING AND DRINKING ENOUGH FLUIDS, NO NEED FOR NS @ 75 ML/HR. WILL CONTINUE TO MONITOR AND ENDORSE TO NEXT SHIFT NURSE.
[2022-11-15 12:46] VITALS: BP 128/60
[2022-11-15 16:00] VITALS: BP 141/61
--- NOTE | 2022-11-15 17:04 | NUR ---
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 BACTROBAN OINTMENT WAS ORDERED, APPLY TO BOTH NOSTRILS. CHARGE NURSE AWARE.
--- NOTE | 2022-11-15 18:49 | NUR ---
RN CLOSING NOTE PATIENT AWAKE IN BED, RESTING, A/O X 1, FAMILY AT BEDSIDE. NO S/S OF PAIN NOTED AT THIS TIME. ON ROOM AIR, BREATHING EVEN AND UNLABORED, NO DISTRESS OR SHORTNESS OF BREATH NOTED. PATIENT IS COMPLIANT WITH MEDICATIONS. SCHEDULED MEDICATIONS ADMINISTERED. PATIENT WAS TURNED AND REPOSITIONED PER PROTOCOL. IV ACCESS, L WRIST #20G INTACT, PATENT AND FLUSHING WELL. PATIENT WITH DIAS CATHETER IN PLACED AND DRAINING WELL, OUTPUT 1000ML, YELLOW URINE. FALL AND SAFETY MEASURES IN PLACE BED ALARM ON, BED IN LOW AND LOCK POSITION, CALL LIGHT AND TABLE WITHIN EASY REACH, SIDE RAILS UP X 2. ALL NEEDS ATTENDED AND ANTICIPATED. WILL ENDORSE TO FERMENTATION SCIENTIST NURSE.
--- NOTE | 2022-11-15 19:00 | NUR ---
RN opening notes Received Pt from am nurse. Pt is sitting in bed comfortably watching TV accompanied by Pt's granddaughter. Pt is alert and orientedX1-2. Pt speaks Japanese and able to make needs known. On room air. No SOB. No S/S of distress noted. IV site at L wrist # 20 is clean, intact and flushes well. Del Angel cath is inplaced and draining yellow urine. safety precautions is maintained. bed at low position, brakes locked side rails upX2, hob elevated, bed alarm is on and call light is within reach. will continue to monitor.
[2022-11-15 20:00] VITALS: BP 139/74
[2022-11-15] MEDS: MUPIROCIN OINT 2% 22 GM TUBE NS SCH (20:17)
[2022-11-15] MEDS: ENOXAPARIN SODIUM 40 MG/0.4 ML DISP.SYRIN SQ SCH (20:20)
[2022-11-15] MEDS: AMLODIPINE BESYLATE 5 MG TABLET PO SCH (21:11)
--- NOTE | 2022-11-16 05:29 | NUR ---
RN notes Pt and Pt's daughter refuses to be cleaned and changed. Offered several times during pm shift. Explained risks and benefits. Pt daughter Jenn informed "she is fine." Pt keep refusing. will continue to monitor.
--- NOTE | 2022-11-16 06:30 | NUR ---
RN closing notes Pt is resting in bed comfortably. Pt is alert and orientedX1-2. Pt speaks Beninese and able to make needs known. Pt's daughter at the bedside. On room air. No SOB. No S/S of distress noted. Routine meds were given as ordered. IV site at L wrist # 20 is clean, intact and flushes well. Del Angel cath is inplaced and draining yellow urine 1000 ml. Kept Pt clean, dry and comfortable. All needs met and attended. safety precautions is maintained. bed at low position, brakes locked side rails upX2, hob elevated, bed alarm is on and call light is within reach. Will endorse to am nurse for BEATA.
[2022-11-16 07:00] VITALS: BP 137/65
--- NOTE | 2022-11-16 07:38 | NUR ---
RN OPENING NOTE PATIENT AWAKE IN BED, RESTING, A/O X 1-2, FAMILY MEMBER AT BEDSIDE . NO S/S OF PAIN NOTED AT THIS TIME. ON ROOM AIR, BREATHING EVEN AND UNLABORED, NO DISTRESS OR SHORTNESS OF BREATH NOTED. NO SOB OR DISTRESS NOTED . IV ACCESS, L WRIST #20G INTACT, PATENT AND FLUSHING WELL. FALL AND SAFETY MEASURES IN PLACE BED ALARM ON, BED IN LOW AND LOCK POSITION, CALL LIGHT AND TABLE WITHIN EASY REACH, SIDE RAILS UP X2. WILL CONTINUE TO MONITOR.
[2022-11-16] MEDS: PANTOPRAZOLE 40 MG TABLET.DR PO SCH (08:14)
[2022-11-16] MEDS: ASPIRIN EC 81 MG TABLET.DR PO SCH (08:22)
[2022-11-16] MEDS: MEMANTINE HCL 5 MG TABLET PO SCH (08:22)
[2022-11-16] MEDS: ESCITALOPRAM OXALATE (10 MG) 10 MG TABLET PO SCH (08:22)
[2022-11-16] MEDS: CARBIDOPA/LEVODOPA 10/100 MG 1 UDTAB PO SCH ×2 (08:22→14:34)
[2022-11-16] MEDS: DONEPEZIL 5 MG TABLET PO SCH (08:23)
[2022-11-16] MEDS: FOLIC ACID 1 MG TABLET PO SCH (08:23)
[2022-11-16] MEDS ORDERED: CEPH500C2 PO (08:55)
[2022-11-16 09:00] VITALS: BP 137/65
[2022-11-16] MEDS: ATENOLOL 25 MG TABLET PO SCH (09:00)
[2022-11-16] MEDS: OLOPATADINE HCL 0.1% OPHTH BOTTLE EACHEYE SCH (09:50)
[2022-11-16] MEDS: AZELASTINE NASAL SPRAY 30 ML BOTTLE NS SCH (09:50)
[2022-11-16] MEDS: CEFTRIAXONE 1 G in IV D5W 50 ML IV SCH (09:52)
[2022-11-16] MEDS: MUPIROCIN OINT 2% 22 GM TUBE NS SCH (10:04)
--- NOTE | 2022-11-16 16:00 | NUR ---
CLINICAL NURSE SPECIALIST NOTES PATIENT WITH ORDER FOR DISCHARGE TO HOME , MEDICALLY CLEARED , ALL PREPARED DISCHARGE INSTRUCTIONS PROVIDED TO THE DAUGHTER REGARDING MEDICATIONS , ANTIBIOTIC TO CONTINUE AT HOME , HOME HEALTH TO FOLLOW AND SAFETY , ALL BELONGINGS WERE TAKEN AND FORM WAS SIGNED BY FAMILY , DIAS CATHETER WAS REMOVED AND MONITOR FOR RETENTION AND WAS ABLE TO URINATE USING THE BEDSIDE COMMODE , IV ACCESS AND ID BADGE REMOVED , TRANSPORTATION PROVIDED BY THE FAMILY VIA PRIVATE CAR , ASSISTED OT THE LOBBY WITH VISUAL STYLIST AND LEFT IN A STABLE CONDITION
== END 2022-11-16 16:00 | disposition home health service (06) | DRG 689 ==
LOC: ER 15:39 → TELE 20:06 → MED 22:06
PROVIDERS: ADMIT Nurse Practitioner Family; ATTEND Nurse Practitioner Acute Care
DX: N39.0 Urinary tract infection, site not specified (principal); G92.9 Unspecified toxic encephalopathy; E87.1 Hypo-osmolality and hyponatremia; J98.11 Atelectasis; G20 Parkinson's disease; M06.9 Rheumatoid arthritis, unspecified; I10 Essential (primary) hypertension; Z20.822 Contact with and (suspected) exposure to COVID-19; J45.909 Unspecified asthma, uncomplicated; Z88.1 Allergy status to other antibiotic agents; Z79.82 Long term (current) use of aspirin; Z79.51 Long term (current) use of inhaled steroids; Z79.899 Other long term (current) drug therapy; B96.89 Other specified bacterial agents as the cause of diseases classified elsewhere; R73.9 Hyperglycemia, unspecified; E80.6 Other disorders of bilirubin metabolism; Z86.73 Personal history of transient ischemic attack (TIA), and cerebral infarction without residual deficits; F02.80 Dementia in other diseases classified elsewhere, unspecified severity, without behavioral disturbance, psychotic disturbance, mood disturbance, and anxiety; F32.A Depression, unspecified; E86.1 Hypovolemia; R79.89 Other specified abnormal findings of blood chemistry; F01.50 Vascular dementia, unspecified severity, without behavioral disturbance, psychotic disturbance, mood disturbance, and anxiety; E87.6 Hypokalemia; Z90.49 Acquired absence of other specified parts of digestive tract
CPT/HCPCS: 36415; 70450-TC; 71045-TC; 76770-TC; 80048-TC; 80076-TC; 81001; 82140-TC; 82962-TC; 83605-TC; 83735-TC; 84100-TC; 84443-TC; 84484-TC; 85025-TC; 85730-TC; 87040-TC; 87081-TC; 87086-TC; 97116-TC; 97530-TC; C9803; G0378; G0480; J0696; J1650; J7030; J7060

== ENCOUNTER 2023-01-07 09:29 | Day surgery (SDC) | payer MEDICARE, OTHER ==
[~2023-01-07] VITALS: Ht 170.2 cm; Wt 63.5 kg
[~2023-01-07 09:29] MED LIST changes: -ALBU18HF2 IH; +AMLO-212 PO; +ATEN25TA PO; +AZEL137S7; -BENZ0.5T43 PO; -CARB1TAB21 PO; +CARB1TAB31 PO; +CEPH500C2 PO; +CLOT15CR27 TD; +DICL1PAT7 TD; +DOCU100C58 PO; -DONE10TA44 PO; +DONE23TA3 PO; +ESOM40CA52 PO; -HYDR473S4 PO; +LORA-953 PO; -LOSA25TA27 PO; -LOSA50TA39 PO; +MELO-107 PO; +METH2.5T14 MT; +OLOP5DRO15 EACHEYE; -PROP10TA68 PO; +TRIA0.2585 PO
[2023-01-07] MEDS ORDERED: NITROGLYCERIN 0.4 MG/TAB BOTTLE ONE (10:54)
[2023-01-07] MEDS ORDERED: CT SWABBABLE VALVE TRANS SET 1 EA INFUS.SET MC ONE (10:54)
[2023-01-07] MEDS ORDERED: IV NS 0.9% 250 ML IV ONE (10:54)
[2023-01-07] MEDS ORDERED: IOHEXOL-350 100 ML VIAL IV ONE (10:54)
[2023-01-07] MEDS ORDERED: METOPROLOL TARTRATE INJ 5 MG/5 ML AMPUL ONE (10:54)
[2023-01-07] MEDS ORDERED: METOPROLOL TARTRATE INJ 5 MG/5 ML AMPUL IVP PRN (12:00)
[2023-01-07] MEDS ORDERED: NITROGLYCERIN 0.4 MG/TAB BOTTLE SL ONE (12:00)
[2023-01-07 12:15] VITALS: BP 117/47
--- NOTE | 2023-01-07 12:28 | NUR ---
rEPORT GIVEN TO KRAIG ROJAS 315 (APA) FOR BEATA, PATIENT DISCHARGED IN STABLE CONDITION AND DENIES ANY DISCOMFORT. IV INTACT.
== END 2023-01-07 12:32 | disposition short-term general hospital (02) ==
LOC: CT 09:29
PROVIDERS: ATTEND Internal Medicine
DX: I65.22 Occlusion and stenosis of left carotid artery (principal); I34.81 Nonrheumatic mitral (valve) annulus calcification; J44.9 Chronic obstructive pulmonary disease, unspecified; I70.0 Atherosclerosis of aorta; I25.10 Atherosclerotic heart disease of native coronary artery without angina pectoris
CPT/HCPCS: 75574; J7050; Q9967; J3490

== ENCOUNTER 2025-04-25 16:13 | Emergency (ER) | payer MEDICARE, OTHER ==
[~2025-04-25] VITALS: Ht 172.7 cm; Wt 77.1 kg
[2025-04-25 18:00] LABS: CALCIUM, SERUM 8.6 mg/dL (8.5-10.1); CREATININE 0.8 mg/dL (0.6-1.3); SODIUM SERUM 131.0 mmol/L (136-145); UREA NITROGEN, BLOOD 18.0 mg/dL (7-18)
[2025-04-25 18:01] LABS: PLATELET COUNT (AUTO) 141 K/uL (150-450); RED BLOOD CELL COUNT(AUTO) 4.17 MIL/uL (4.0-5.2); RED CELL DISTRIBUTION WIDTH 17.3 % (11.5-15.0); WHITE BLOOD COUNT (AUTO) 5.2 K/uL (4.3-11.0)
[2025-04-25 18:54] VITALS: BP 129/92; TEMP 97.9; O2SAT 97
== END 2025-04-25 18:54 | disposition home or self-care (01) ==
LOC: ER 16:13
DX: L98.9 Disorder of the skin and subcutaneous tissue, unspecified (principal); G20.A1 Parkinson's disease without dyskinesia, without mention of fluctuations; I10 Essential (primary) hypertension; M06.9 Rheumatoid arthritis, unspecified; M81.0 Age-related osteoporosis without current pathological fracture; Z79.1 Long term (current) use of non-steroidal anti-inflammatories (NSAID); Z79.82 Long term (current) use of aspirin; Z88.1 Allergy status to other antibiotic agents; Z79.899 Other long term (current) drug therapy
CPT/HCPCS: 36415; 73610-TC; 80048-TC; 84550-TC; 85025-TC